=== PATIENT | female | born 1995 | race Two or more races ===

== ENCOUNTER 2023-12-04 09:39 | Inpatient (IN) | payer OTHER ==
[2023-12-04] MEDS: ELECTROLYTE-148 SOLN 1,000 ML IV ONE (10:00)
[2023-12-04 10:32] VITALS: BMI 37.4
[2023-12-04] MEDS ORDERED: ONDANSETRON 4 MG/2 ML VIAL IVPUSH PRN (10:58)
[2023-12-04] MEDS ORDERED: ACETAMINOPHEN 325 MG TABLET (FP) PO PRN (10:58)
[2023-12-04] MEDS: ELECTROLYTE-148 SOLN 1,000 ML IV SCH (11:15)
[2023-12-04] MEDS: CITRIC ACID/SODIUM CITRATE 30 ML UNIT-DOSE CUP PO ONE ×2 (11:15→15:01)
[2023-12-04] MEDS ORDERED: morphine SULFATE/PF 1 MG/2 ML (2cc Syringe - QUVA) ONE (11:51)
[2023-12-04] MEDS ORDERED: ONDANSETRON 4 MG/2 ML VIAL ONE (11:51)
[2023-12-04] MEDS ORDERED: KETOROLAC TROMETHAMINE 30 MG/1 ML VIAL ONE (11:51)
[2023-12-04] MEDS ORDERED: DEXAMETHASONE SOD PHOSPHATE 4 MG/1 ML VIAL ONE (11:51)
[2023-12-04] MEDS ORDERED: FENTANYL CITRATE/PF 50 MCG/ML VIAL ONE (11:51)
[2023-12-04] MEDS ORDERED: ceFAZolin SODIUM 1 GM VIAL ONE (11:51)
[2023-12-04] MEDS ORDERED: PHENYLEPHRINE HCL 10 MG/1 ML SINGLE DOSE VIAL ONE (12:40)
[2023-12-04 13:46] LABS: CORD BASE EXCESS -3.3 mmol/L (0-2); CORD HCO3 23.6 mmHg (20-29); CORD PCO2 49.4 mmHg (30-78); CORD pH 7.297 (7.14-7.44)
[2023-12-04 13:48] LABS: CORD BASE EXCESS -5.2 mmol/L (0-2); CORD HCO3 24.1 mmHg (20-29); CORD PCO2 63.6 mmHg (30-78); CORD pH 7.196 (7.14-7.44)
[2023-12-04] MEDS ORDERED: ELECTROLYTE-148 SOLN 1,000 ML IV SCH (14:15)
[2023-12-04] MEDS ORDERED: IBUPROFEN 800 MG/8 ML IJ IVPB PRN (14:28)
[2023-12-04] MEDS ORDERED: WITCH HAZEL 50% (TUCKS) 40 PAD/JAR PAD TP PRN (14:28)
[2023-12-04] MEDS ORDERED: oxyCODONE HCL 5 MG TABLET PO PRN (14:28)
[2023-12-04] MEDS: OXYTOCIN 20 UNITS in 0.9% NS 20 UNIT/1,000 ML INFUS.BAG IV SCH (17:12)
[2023-12-04] MEDS: FERROUS SO4 325 MG TABLET (FP) PO SCH (22:03)
[2023-12-04] MEDS: SENNOSIDES/DOCUSATE COMBO (SENNA PLUS) TABLET (UD) PO SCH (22:19)
[2023-12-04] MEDS: SIMETHICONE 80 MG TAB.CHEW (FP) PO PRN (22:19)
[2023-12-05] MEDS: ACETAMINOPHEN 1000 MG/100 ML BAG IVPB PRN (03:17)
[2023-12-05] MEDS: IBUPROFEN 600 MG TABLET (FP) PO PRN (07:34)
[2023-12-05 08:34] LABS: BASO % 0.1 % (0-2.0); EOS % 0.4 % (0-4.5); HEMATOCRIT 26.4 % (32.4-45.2); HEMOGLOBIN 8.9 GM/dL (10.7-15.3); LYMPH % 17.8 % (8-40); MCH 28.5 pg (25.7-33.7); MCHC 33.6 g/dl (32.0-36.0); MEAN PLT VOLUME 9.5 fl (7.5-11.1); MONO % 4.1 % (3.8-10.2); NEUT % 77.6 % (42.8-82.8); PLATELET COUNT 192 10^3/uL (134-434); RBC 3.11 M/mm3 (3.60-5.2); RDW 14.9 % (11.6-15.6); WHITE BLOOD COUNT 13.9 K/mm3 (4.0-10.0)
[2023-12-05 09:29] VITALS: RESP 18
[2023-12-05] MEDS: ACETAMINOPHEN 325 MG TABLET (FP) PO PRN (21:19)
[2023-12-06] MEDS: BISACODYL 10 MG SUPP.RECT RC PRN (05:19)
[2023-12-07 09:09] VITALS: BP 98/63; PULSE 85; TEMP 98.1
== END 2023-12-07 13:30 | disposition home or self-care (01) | DRG 540 ==
LOC: JLDR 09:39 → J3W 16:39
PROVIDERS: ADMIT Family Medicine; ATTEND Family Medicine
PROC: 10D00Z1 Extraction of Products of Conception, Low, Open Approach (ICD-10-PCS; principal; 2023-12-04)
DX: O34.211 Maternal care for low transverse scar from previous cesarean delivery (principal); N85.8 Other specified noninflammatory disorders of uterus; Z3A.39 39 weeks gestation of pregnancy; Z37.0 Single live birth
CPT/HCPCS: 36415; 36600; 80053; 81003; 82803; 85025; 85610; 85730; 86850; 86900; 86901; J0131